=== PATIENT | female | born 1970 | race Caucasian/White ===

== ENCOUNTER 2019-02-14 11:46 | Emergency (ER) | payer MEDICARE, MEDICAID ==
[~2019-02-14] VITALS: Ht 170.2 cm; Wt 120.5 kg
[2019-02-14] MEDS ORDERED: predniSONE 20 MG TAB PO ONE (12:15)
[2019-02-14] MEDS ORDERED: RT-ALBUTEROL/IPRATROPIUM 3 ML (DUONEB) VIAL INH ONE (12:15)
--- NOTE | 2019-02-14 12:35 | Diagnostic Imaging Report ---
PATIENT HISTORY: Cough and shortness of breath. TECHNIQUE: Two views of the chest. COMPARISON: None. FINDINGS: The lung volumes are normal. No focal consolidation is seen. No large pleural effusion or pneumothorax is seen. The cardiomediastinal silhouette is normal in size and contour. No acute osseous abnormality is seen. IMPRESSION: No acute pulmonary abnormality seen. Dictated by: Dictated on workstation # [id number]
[2019-02-14] MEDS ORDERED: PRD20T PO (12:56)
[2019-02-14] MEDS ORDERED: ALBU2.5V4 INH (12:56)
--- NOTE | 2019-02-14 12:56 | ED General ---
General Chief Complaint: Cough/Cold/Flu Symptoms Stated Complaint: SOB History of Present Illness Date Seen by Provider: Feb 14, 2019 Time Seen by Provider: 12:51 Initial Comments Patient presenting to emergency department for evaluation of cough congestion and shortness of breath that has been worsening over the past one week. She saw her primary care provider in one week ago and was started on doxycycline. She has a history of COPD and continues to smoke cigarettes although she says she is trying to cut down. She says she has right-sided rib pain every time she coughs but no pain in between. No fevers chills nausea vomiting or other systemic symptoms. She is in no obvious distress with normal vital signs including option saturation of 99%. Allergies and Home Medications Allergies Coded Allergies: cephalexin (Verified Allergy, Unknown, 02/14/19) ketorolac (Verified Allergy, Unknown, 02/14/19) quetiapine (Verified Allergy, Unknown, 02/14/19) sulfamethoxazole (Verified Allergy, Unknown, 02/14/19) trimethoprim (Verified Allergy, Unknown, 02/14/19) Patient Home Medication List Home Medication List Reviewed: Yes Review of Systems Review of Systems Constitutional: no symptoms reported EENTM: nose congestion Respiratory: cough Cardiovascular: chest pain Gastrointestinal: no symptoms reported Genitourinary: no symptoms reported Musculoskeletal: no symptoms reported All Other Systems Reviewed Negative Unless Noted: Yes Physical Exam Vital Signs Capillary Refill : Height, Weight, BMI Height: '" Weight: lbs. oz. kg; BMI Method: General Appearance: No Apparent Distress, WD/WN HEENT: PERRL/EOMI Neck: Supple Respiratory: Respiratory Distress (mild), Wheezing Cardiovascular: Regular Rate, Rhythm Gastrointestinal: Non Tender, Soft Back: Normal Inspection Extremity: Normal Capillary Refill, No Pedal Edema Neurologic/Psychiatric: Alert, Oriented x3 Skin: Warm/Dry Progress/Results/Core Measures Suspected Sepsis SIRS Temperature: Pulse: Respiratory Rate: Blood Pressure / Mean: Results/Orders My Orders Orders - PETTY MCDOWELL DO Chest Pa/Lat (2 View) (02/14/19 12:06) Albuterol/Ipra Inhalation Soln (Duoneb I (02/14/19 12:15) Prednisone Tablet (Deltasone Tablet) (02/14/19 12:15) Svn Small Volume Nebulizer (02/14/19 12:06) Medications Given in ED Current Medications Medications Dose Ordered Sig/Yesenia Route Start Time Stop Time Status Last Admin Dose Admin Albuterol/ Ipratropium 3 ml ONCE ONCE INH 02/14/19 12:15 02/14/19 12:16 DC 02/14/19 12:32 3 ML Prednisone 50 mg ONCE ONCE PO 02/14/19 12:15 02/14/19 12:16 DC 02/14/19 12:32 50 MG Vital Signs/I&O Capillary Refill : Progress Note : Progress Note Patient with signs of a COPD exacerbation likely from an upper respiratory tract infection. She has also finished her doxycycline and Tori told her to go ahead and finish it. She was given prednisone and a DuoNeb treatment here and she said that the DuoNeb helped her breathing is significantly. She says that she has a nebulizer machine but she does not have any more albuterol left side able prescribe this for her and prescribe her 4 more days of prednisone as well. Patient still has normal vital signs and has improved aeration of her long with no respiratory distress. She'll be discharged in stable condition told to follow primary care provider later this week and come back to the ED sooner if worsening pain shortness of breath or other general concerns. Patient aware and agreeable with plan and verbalized understanding of the above instructions. Departure Impression Primary Impression: Upper respiratory infection Additional Impression: COPD with acute exacerbation Disposition: 01 HOME, SELF-CARE Condition: Stable Departure-Patient Inst. Referrals: KIRSTIE MARIE MD (PCP/Family) Primary Care Physician Patient Instructions: Exacerbation of COPD (DC) Scripts Prednisone (Prednisone) 20 Mg Tab 60 MG PO DAILY for 4 Days, #12 TAB 0 Refills Prov: PETTY MCDOWELL DO 02/14/19 Albuterol Sulfate (Albuterol Sulfate) 2.5 Mg/3 Ml Vial.neb 2.5 MG INH Q4H PRN for WHEEZING, #50 EA 1 Refill Prov: PETTY MCDOWELL DO 02/14/19 PETTY MCDOWELL DO Feb 14, 2019 12:56
[2019-02-14 13:09] VITALS: BP 128/55
== END 2019-02-14 13:00 | disposition home or self-care (01) ==
LOC: ER FS 11:49
DX: J44.1 Chronic obstructive pulmonary disease with (acute) exacerbation (principal); J06.9 Acute upper respiratory infection, unspecified; F17.210 Nicotine dependence, cigarettes, uncomplicated; Z88.1 Allergy status to other antibiotic agents; Z88.2 Allergy status to sulfonamides; Z88.8 Allergy status to other drugs, medicaments and biological substances; Z88.6 Allergy status to analgesic agent
CPT/HCPCS: 71046; 94640

== ENCOUNTER → 2019-10-07 | Outpatient (CLI) | payer MEDICARE, MEDICAID ==
[~2019-10-07] MED LIST: ALBU2.5V4 INH; CATHETER FLUSH 10 ML SYR IV PRN; HOLD METFORMIN - RECEIVED CONTRAST 20 ML VIAL IV SCH; IOHEXOL 350 MG/ML 150 ML (OMNIPAQUE 350) VIAL IV ONE; NS 100 ML (IVPB) BAG IV ONE; PRD20T PO
--- NOTE | 2019-10-07 18:13 | Diagnostic Imaging Report ---
PROCEDURE: CT angiography of the chest with contrast. TECHNIQUE: Multiple contiguous axial images were obtained through the chest after uneventful bolus administration of intravenous contrast. 3D reconstructed CTA MIP acquisitions were also performed. Auto Exposure Controls were utilized during the CT exam to meet ALARA standards for radiation dose reduction. INDICATION: COPD. Shortness of breath. COMPARISON: Chest radiograph 02/14/2019. FINDINGS: Normal caliber thoracic aorta without evidence of dissection. No pulmonary artery filling defects. Prominent heart size. No pericardial effusion. Tiny pleural effusions, greater on the right. No pneumothorax. Minimal atelectasis in the right. Right hilar lymph node measuring up 1.4 cm in short axis dimension. There is also a pretracheal lymph node measuring up to 1.2 cm in short axis dimension. A left hilar lymph node measures up to 1.1 cm in short axis dimension. Subcarinal lymph node measures up to 1.2 cm. Osseous structures are intact. Geographic low-attenuation changes in the liver compatible with fatty infiltration. IMPRESSION: 1. No pulmonary emboli. No thoracic aortic aneurysm dissection. 2. Prominent heart size. 3. Mediastinal and bilateral hilar lymphadenopathy is indeterminate. 4. Tiny bilateral pleural effusions, greater on the right. 5. Hepatic steatosis. Dictated by: Dictated on workstation # [id number]
== END ==
LOC: RAD FS 17:26
PROVIDERS: ATTEND Nurse Practitioner
DX: K76.0 Fatty (change of) liver, not elsewhere classified (principal); J44.9 Chronic obstructive pulmonary disease, unspecified; R59.0 Localized enlarged lymph nodes
CPT/HCPCS: 71275